=== PATIENT | male | born 1960 | race Hispanic/Latino ===

== ENCOUNTER 2021-01-15 08:46 | Outpatient (CLI) | payer BC | END 2021-01-15 08:47 | disposition home or self-care (01) | LOC: CSHWCC 08:46 | PROVIDERS: ATTEND Nurse Practitioner Family | DX: T81.89XA Other complications of procedures, not elsewhere classified, initial encounter (principal); E11.622 Type 2 diabetes mellitus with other skin ulcer; G89.11 Acute pain due to trauma; I10 Essential (primary) hypertension; L08.89 Other specified local infections of the skin and subcutaneous tissue; B96.89 Other specified bacterial agents as the cause of diseases classified elsewhere; N43.3 Hydrocele, unspecified ==

== ENCOUNTER 2021-01-18 08:08 | Outpatient (CLI) | payer BC | END 2021-01-18 08:09 | disposition home or self-care (01) | LOC: CSHWCC 08:08 | PROVIDERS: ATTEND Nurse Practitioner Family | DX: T81.89XD Other complications of procedures, not elsewhere classified, subsequent encounter (principal); E11.622 Type 2 diabetes mellitus with other skin ulcer; G89.11 Acute pain due to trauma; I10 Essential (primary) hypertension; L08.89 Other specified local infections of the skin and subcutaneous tissue; B96.89 Other specified bacterial agents as the cause of diseases classified elsewhere; N43.3 Hydrocele, unspecified | CPT/HCPCS: 97607 ==

== ENCOUNTER 2021-01-22 10:45 | Outpatient (CLI) | payer BC | END 2021-01-22 10:46 | disposition home or self-care (01) | LOC: CSHWCC 10:45 | PROVIDERS: ATTEND Nurse Practitioner Family | DX: T81.89XD Other complications of procedures, not elsewhere classified, subsequent encounter (principal); E11.622 Type 2 diabetes mellitus with other skin ulcer; G89.11 Acute pain due to trauma; I10 Essential (primary) hypertension; L08.89 Other specified local infections of the skin and subcutaneous tissue; B96.89 Other specified bacterial agents as the cause of diseases classified elsewhere; N43.3 Hydrocele, unspecified | CPT/HCPCS: 97605 ==

== ENCOUNTER 2021-01-25 10:21 | Outpatient (CLI) | payer BC | END 2021-01-25 10:22 | disposition home or self-care (01) | LOC: CSHWCC 10:21 | PROVIDERS: ATTEND Nurse Practitioner Family | DX: T81.89XD Other complications of procedures, not elsewhere classified, subsequent encounter (principal); E11.622 Type 2 diabetes mellitus with other skin ulcer; G89.11 Acute pain due to trauma; I10 Essential (primary) hypertension; L08.89 Other specified local infections of the skin and subcutaneous tissue; B96.89 Other specified bacterial agents as the cause of diseases classified elsewhere; N43.3 Hydrocele, unspecified ==

== ENCOUNTER 2021-01-29 09:59 | Outpatient (CLI) | payer BC | END 2021-01-29 10:00 | disposition home or self-care (01) | LOC: CSHWCC 09:59 | PROVIDERS: ATTEND Nurse Practitioner Family | DX: T81.89XD Other complications of procedures, not elsewhere classified, subsequent encounter (principal); E11.622 Type 2 diabetes mellitus with other skin ulcer; G89.11 Acute pain due to trauma; I10 Essential (primary) hypertension; L08.89 Other specified local infections of the skin and subcutaneous tissue; B96.89 Other specified bacterial agents as the cause of diseases classified elsewhere; N43.3 Hydrocele, unspecified; L98.499 Non-pressure chronic ulcer of skin of other sites with unspecified severity ==

== ENCOUNTER 2021-02-01 09:04 | Outpatient (CLI) | payer BC | END 2021-02-01 09:05 | disposition home or self-care (01) | LOC: CSHWCC 09:04 | PROVIDERS: ATTEND Nurse Practitioner Family | DX: T81.89XD Other complications of procedures, not elsewhere classified, subsequent encounter (principal); E11.622 Type 2 diabetes mellitus with other skin ulcer; G89.11 Acute pain due to trauma; I10 Essential (primary) hypertension; L08.89 Other specified local infections of the skin and subcutaneous tissue; B96.89 Other specified bacterial agents as the cause of diseases classified elsewhere; N43.3 Hydrocele, unspecified | CPT/HCPCS: 99212; G0463 ==

== ENCOUNTER 2021-02-08 10:30 | Outpatient (CLI) | payer BC | END 2021-02-08 10:31 | disposition home or self-care (01) | LOC: CSHWCC 10:30 | PROVIDERS: ATTEND Nurse Practitioner Family | DX: T81.89XD Other complications of procedures, not elsewhere classified, subsequent encounter (principal); E11.622 Type 2 diabetes mellitus with other skin ulcer; L98.499 Non-pressure chronic ulcer of skin of other sites with unspecified severity; G89.11 Acute pain due to trauma; I10 Essential (primary) hypertension; L08.89 Other specified local infections of the skin and subcutaneous tissue; B96.89 Other specified bacterial agents as the cause of diseases classified elsewhere; N43.3 Hydrocele, unspecified | CPT/HCPCS: 99213; G0463 ==

== ENCOUNTER 2021-02-22 12:39 | Outpatient (CLI) | payer BC | END 2021-02-22 12:40 | disposition home or self-care (01) | LOC: CSHWCC 12:39 | PROVIDERS: ATTEND Nurse Practitioner Family | DX: T81.89XD Other complications of procedures, not elsewhere classified, subsequent encounter (principal); E11.622 Type 2 diabetes mellitus with other skin ulcer; L98.499 Non-pressure chronic ulcer of skin of other sites with unspecified severity; G89.11 Acute pain due to trauma; L08.89 Other specified local infections of the skin and subcutaneous tissue; B96.89 Other specified bacterial agents as the cause of diseases classified elsewhere; N43.3 Hydrocele, unspecified; I10 Essential (primary) hypertension ==